=== PATIENT | male | born 1940 | race Caucasian/White ===

== ENCOUNTER 2016-12-31 08:16 | Day surgery (SDC) | payer MEDICARE, BC ==
[~2016-12-31] VITALS: Ht 177.8 cm; Wt 81.2 kg
[~2016-12-31 08:16] MED LIST: ASPI-557 PO; ATOR20TA59 PO; CARV6.252 PO; ENOX80DI SQ; FINA5TAB42 PO; HYDR25TA PO; LIDOCAINE 1% (10mg/ml) 2ml SDV INJ ONE; LISI40TA4 PO; LR 1,000 ML IV SCH; NITR0.4T SL; TAMS0.4C47 PO; WARF10TA4 PO
--- OUTSIDE RECORDS SUMMARY | 2016-12-31 08:21 | XMS REPORT | Referral Summary ---
Author Author [facility] Organization [facility] Address Unknown Phone Unavailable Care Team Providers Care Mobile Ui Designer Name Role Phone Tony Guidry Primary Care Physician [phone] Encounter VC Date(s): 05/22/16 - 05/22/16 [facility] [address] [place] [address] [place] [id number]- Discharge Diagnosis: Colitis Discharge Disposition: 01-Home or Self Care Attending Physician: Jose Luis Max MD Admitting Physician: Jose Luis Max MD Referring Physician: Ga Guidry MD Vital Signs Most recent to 1 oldest [Reference Range]: Temperature Tympanic 37 degC [36.6-38.1 degC] (05/22/16 2:52 PM) Problem List Condition Effective Dates Status Health Status Informant Alcoholism(Confirmed Resolved ) Benign essential Active hypertension (disorder)(Confirmed ) Chest Resolved pain(Confirmed)1 Coronary Active arteriosclerosis (disorder)(Confirmed ) Coronary artery Resolved disease(Confirmed) Essential Resolved hypertension (disorder)(Confirmed ) Exostosis(Confirmed) Resolved Hammertoe(Confirmed) Resolved Aortic valve Active replaced(Confirmed) Hyperlipidemia(Confi Resolved rmed) Hypertension(Confirm Resolved ed) Left inguinal Active hernia(Confirmed) Mycotic Resolved disease(Confirmed) Onychomycosis of Resolved toenail(Confirmed) Pure Active hypercholesterolemia (disorder)(Confirmed ) Pure Active hypercholesterolemia (Confirmed) Restless Active legs(Confirmed) Tinea Resolved pedis(Confirmed) 1heart cath w/3 stents(Dr. Squires)2013 Allergies, Adverse Reactions, Alerts Substance Reaction Severity Status fentaNYL Adverse Reaction Active morphine flushing Active Tape blisters Active Medications aspirin 81 mg, Chewed, Daily, 0 Refill(s) Start Date: 02/08/14 Status: Ordered Augmentin 875 mg-125 mg oral tablet 1 tabs, Oral, q12hr, HAS 5 PILLS LEFT, # 20 tabs, 0 Refill(s) Start Date: 05/09/16 Stop Date: 05/19/16 Status: Ordered Coreg 6.25 mg oral tablet See Instructions, TAKE ONE TABLET BY MOUTH TWICE A DAY WITH FOOD, # 180 tabs, 3 Refill(s), eRx: [facility] #[id number], TAKE ONE TABLET BY MOUTH TWICE A DAY WITH FOOD Start Date: 09/15/14 Status: Ordered finasteride 5 mg oral tablet mg tabs, Oral, Daily, 0 Refill(s) Start Date: 08/09/15 Status: Ordered hydrochlorothiazide 25 mg oral tablet See Instructions, TAKE ONE TABLET BY MOUTH DAILY, # 90 tabs, eRx: [facility] #[id number], TAKE ONE TABLET BY MOUTH DAILY Start Date: 04/04/16 Status: Ordered Lipitor 20 mg oral tablet See Instructions, TAKE ONE TABLET BY MOUTH EVERY EVENING, # 90 tabs, 1 Refill(s) , Pharmacy: [facility] #[id number], TAKE ONE TABLET BY MOUTH EVERY EVENING Start Date: 03/19/16 Status: Ordered lisinopril 40 mg oral tablet See Instructions, TAKE ONE TABLET BY MOUTH DAILY, # 90 tabs, 2 Refill(s), eRx: [facility] #[id number], TAKE ONE TABLET BY MOUTH DAILY Start Date: 03/12/16 Status: Ordered Nitrostat 0.4 mg sublingual tablet 1 tabs, SubLingual, q5min, as needed for chest pain, not to exceed 3 doses/15 min--if pain persists, seek medical attention, # 30 tabs, 1 Refill(s), Pharmacy : [facility] #[id number], 1 tabs SubLingual q5min,PRN:as needed for chest pain ,Instr:not to... Start Date: 01/03/15 Status: Ordered tamsulosin 0.4 mg oral capsule mg caps, Oral, Daily, 0 Refill(s) Start Date: 08/09/15 Status: Ordered warfarin 10 mg oral tablet See Instructions, TAKE ONE TABLET BY MOUTH DAILY, # 30 tabs, 0 Refill(s), Pharmacy: [facility] #[id number], TAKE ONE TABLET BY MOUTH DAILY Start Date: 03/01/16 Status: Ordered Results No data available for this section Immunizations Vaccine Date Refusal Reason tetanus/diphth/pertuss (Tdap) adult/adol 12/30/12 influenza virus vaccine, inactivated 05/09/16 influenza virus vaccine, inactivated 08/09/15 influenza virus vaccine, inactivated1 08/13/14 influenza virus vaccine, live 05/26/13 influenza virus vaccine, live 06/17/12 pneumococcal 13-valent conjugate vaccine 05/09/16 pneumococcal 23-polyvalent vaccine 12/01/04 zoster vaccine live2 02/10/14 1Result Comment: [08/13/2014] SEE SCANNED NOTE 2Early/Late Reason: Other : Procedures Procedure Date Related Diagnosis Body Site Heart - cath / stents 2012 Colonoscopy1 2005 Hernia2 2005 Procedure - porcine valve replacement 1987 Vasectomy3 1970 Appendectomy Bypass - cardia Heart valve4, 5 1had in 2005, due in 2015 [id number] 4aortic with CABG x1 vessel congentel 5Porcine valve replacement-1987 Social History Social History Type Response Smoking Status Former smoker; Type: Cigarettes1 1Quit in 1977 Assessment and Plan Extracted from: Title: Ambulatory Patient Education Author: Jose Luis Max MD Date: Family Medicine Colitis Colitis is inflammation of the colon. Colitis can be a short-term or long- standing (chronic) illness. Crohn's disease and ulcerative colitis are 2 types of colitis which are chronic. They usually require lifelong treatment. CAUSES There are many different causes of colitis, including: Viruses. Germs (bacteria). Medicine reactions. SYMPTOMS Diarrhea. Intestinal bleeding. Pain. Fever. Throwing up (vomiting). Tiredness (fatigue). Weight loss. Bowel blockage. DIAGNOSIS The diagnosis of colitis is based on examination and stool or blood tests. X- rays, CT scan, and colonoscopy may also be needed. TREATMENT Treatment may include: Fluids given through the vein (intravenously). Bowel rest (nothing to eat or drink for a period of time). Medicine for pain and diarrhea. Medicines (antibiotics) that kill germs. Cortisone medicines. Surgery. HOME CARE INSTRUCTIONS Get plenty of rest. Drink enough water and fluids to keep your urine clear or pale yellow. Eat a well-balanced diet. Call your caregiver for follow-up as recommended. SEEK IMMEDIATE MEDICAL CARE IF: You develop chills. You have an oral temperature above 102 F (38.9 C), not controlled by medicine. You have extreme weakness, fainting, or dehydration. You have repeated vomiting. You develop severe belly (abdominal) pain or are passing bloody or tarry stools. MAKE SURE YOU: Understand these instructions. Will watch your condition. Will get help right away if you are not doing well or get worse. This information is not intended to replace advice given to you by your health care provider. Make sure you discuss any questions you have with your health care provider. Document Released: 09/26/2005 Document Revised: 11/10/2012 Document Reviewed: [employer] Patient Information 2016 [employer]. No follow up information was provided. Extracted from: Title: Office Visit Note Author: Jose Luis Max MD Date: 05/22/16 Assessment/Plan 1.Colitis Ordered: Office Visit Level 4 Est 31849 Plan: Colonoscopy. Discuss with Music Journalist about Need for Lovenox/Bridging Secondary to His History for Aortic Valve Replacement. I did review the patient's chart including my consultation note from May 04, 2016. Reviewed note from PCPs soup mixer fromMay 04, 2016. Reviewed CT [place] a short segment of colitis involving the ascending colon near the hepatic flexure. There was a suggestion of a small microperforation was surrounding inflammation. Patient informs me that has been about 10 years since his last endoscopic evaluation of his colon. I informed the patient that as resulted above indications I would recommend that we proceed with a colonoscopyfor further evaluation. I informed the patient that we will need to contact his manager sign to see whether or notthey feel we shouldbridge him/place on Lovenoxwhile he is offhis Coumadinprior to his colonoscopy. Patient does have aprior surgical history foraortic valve replacement. Risk of endoscopy was discussed with the patient. Risks include but are not inclusive of bleeding and/or perforation requiring surgery. Patient understood and was scheduled.
--- OUTSIDE RECORDS SUMMARY | 2016-12-31 08:21 | XMS REPORT | Summary of Care ---
Author Author Angel Nails M.D. Organization Unknown Address [address] [place] [address] Dr [place] [address] Phone Unavailable Care Team Providers Care Corset Fitter Name Role Phone Angel Nails M.D. Unavailable Unavailable Ga Guidry Unavailable Unavailable Unavailable Unavailable Functional Status Name Dates Details Functional status health issues are not documented Status: Name Dates Details Cognitive status health issues are not documented Status: Problems Name Dates Details Abnormal PSA (790.93, R97.20) Status: Active BPH with obstruction/lower urinary tract symptoms (600.01, N40.1) Status: Active History of Urinary retention (788.20, R33.9) Status: Resolved Medications Name Dates Details Tamsulosin HCl - 0.4 MG Oral Capsule TAKE 1 TABLET BY MOUTH DAILY Quantity: 90 Cho M.Mario.Angel * Start 25-Jul-2015 Active Finasteride 5 MG Oral Tablet TAKE 1 TABLET DAILY DIRECTED. * Quantity: 90 Refills: 3 Cho M.D., Angel * Start 25-Jul-2015 Active Lipitor 20 MG Oral Tablet TAKE 1 TABLET DAILY. * Refills: 0 * Start 25-Jul-2015 Active Lisinopril 40 MG Oral Tablet TAKE 1 TABLET DAILY. * Refills: 0 * Start 25-Jul-2015 Active Nitrostat 0.4 MG Sublingual Tablet Sublingual DISSOLVE 1 TABLET UNDER THE TONGUE NEEDED FOR CHEST PAIN. * Refills: 0 * Start 25-Jul-2015 Active Warfarin Sodium 10 MG Oral Tablet TAKE 1 TABLET DAILY. * Refills: 0 Cho M.D.Angel * Start 25-Jul-2015 Active Coreg 6.25 MG Oral Tablet TAKE 1 TABLET TWICE DAILY WITH MEALS. * Refills: 0 Cho M.D., Angel * Start 25-Jul-2015 Active Aspirin 81 MG TABS TAKE 1 TABLET DAILY. * Refills: 0 Cho M.D., Angel * Start 25-Jul-2015 Active HydroCHLOROthiazide 25 MG Oral Tablet TAKE 1 TABLET DAILY DIRECTED. * Refills: 0 Cho M.D.Angel * Start 17-Aug-2016 Active Allergies and Adverse Reactions Name Dates Details fentanyl (Allergy) Status: Denied morphine (Allergy) Status: Denied Tape 1"X5YD TAPE (Allergy) Status: Denied Past Medical History Name Dates Details History of alcoholism (V11.3, F10.21) Status: Resolved History of athlete's foot (V12.09, Z86.19) Status: Resolved History of Benign essential HTN (401.1, I10) Status: Resolved History of chest pain (V13.89, Z87.898) Status: Resolved History of Coronary arteriosclerosis (414.00, I25.10) Status: Resolved History of Exostosis (726.91, M89.8X9) Status: Resolved History of Hammertoe (735.4, M20.40) Status: Resolved History of hypercholesterolemia (V12.29, Z86.39) Status: Resolved History of hyperlipidemia (V12.29, Z86.39) Status: Resolved History of Infective colitis (009.0, A09) Status: Resolved History of Left inguinal hernia (550.90, K40.90) Status: Resolved History of myocardial infarction (412, I25.2) Status: Resolved History of Onychomycosis of toenail (110.1, B35.1) Status: Resolved History of Restless leg syndrome (333.94, G25.81) Status: Resolved History of Urinary retention (788.20, R33.9) Status: Resolved Procedures Procedure Dates Details History of Heart Surgery History of Hernia Repair History of Surgery Vas Deferens Vasectomy History of Appendectomy History of Bypass Graft Using Vein History of Heart Valve Repair History of Cath Placement Of Stent 1 Procedures not documented Immunization Name Dates Details Immunizations not documented Family History Name Dates Details Family history of malignant neoplasm of prostate (V16.42, Z80.42) Comments: Family History Status: Active Name Dates Details Family history of malignant neoplasm of breast (V16.3, Z80.3) Status: Active Name Dates Details Family history of hypertension (V17.49, Z82.49) Status: Active Name Dates Details Family history of malignant neoplasm of prostate (V16.42, Z80.42) Status: Active Family history of hypertension (V17.49, Z82.49) Status: Active Name Dates Details Family history of malignant neoplasm (V16.9, Z80.9) Status: Active Social History Name Dates Details - Status: Name Dates Details Former smoker Vital Signs Date Test Result Details 17-Aug-2016 09:48 BP Systolic 124 mm[Hg] Status: Comments: Location: ; Position: BP Diastolic 69 mm[Hg] Status: Comments: Location: ; Position: Heart Rate 69 /min Status: Comments: Location: ; Weight 180 lb Status: Body Mass Index Calculated 25.83 kg/m2 Status: Body Surface Area Calculated 2 m2 Status: Results Date Description Value Details Results not documented Plan of Care Name Dates Details Planned Observations Planned Goals not documented Planned Encounters Appointment; Provider: Angel Nails M.D. On 21-Aug-2017 08:30 Instructions Name Dates Details Instructions not documented Encounters Appointment; Angel Nails M.D. Encounter Diagnosis: Problem not documented On 09:45 Appointment; Angel Nails M.D. Encounter Diagnosis: Problem not documented On 17-Aug-2015 08:45
--- OUTSIDE RECORDS SUMMARY | 2016-12-31 08:22 | XMS REPORT | Continuity of Care Document ---
Author Author [facility] Organization [facility] Address Unknown Phone Unavailable Support Name Relationship Address Phone TALYA GUIDRY MD Caregiver [address] [place] [address] [place] [address] Unavailable DOMO GONZALEZ FACS, MD Caregiver [address] [place] [address] [place] [address] Unavailable LIZZY MCNEAL Next Of Kin Unknown [phone] Insurance Providers Guarantor Thierno [place] [address] Email DENIED NO TO PT PORT Payer Medicare Policy Number [id number] Subscriber's Name Thierno Shafer Relationship 18 Self Effective Date 04 Payer [facility] Policy Number [id number] Subscriber's Name Thierno Shafer Relationship 18 Self Group Number [id number] Advance Directives Directive Response Recorded Date/Time Ordered Resuscitation Status Full Code 06/20/16 2:55pm Resuscitation Documents on File Yes 06/21/16 8:34am DPOA for Healthcare Only Yes 06/21/16 8:34am Living Will Yes 06/21/16 8:34am Problems Active Problems Medical Problem Onset Date Status Acute cholecystitis Unknown BPH (benign prostatic hyperplasia) Unknown CAD (coronary artery disease) Unknown Chronic Chronic anticoagulation Unknown Chronic Colitis Unknown Acute Dyslipidemia Unknown Chronic HTN (hypertension) Unknown Chronic Left inguinal hernia Unknown Chronic Restless leg syndrome Unknown Chronic Surgical Problem Onset Date Status History of mechanical aortic valve replacement Unknown Chronic Past Problems Medical Problem Onset Date Acute abdominal pain Unknown Hyperbilirubinemia Unknown Peritonitis Unknown Sepsis Unknown Medications Current Home Medications Medication Dose Units Route Directions Days Qty Instructions Start Date Aspirin (Aspir 81) 81 Mg Tablet. 1 Tab Oral Daily 03/13/16 Atorvastatin Calcium 20 Mg Tablet 1 Tab Oral Bedtime 03/13/16 Carvedilol 6.25 Mg Tablet 1 Tab Oral Twice A Day 03/13/16 Enoxaparin Sodium (Lovenox) 80 Mg/0.8 Ml Syringe 80 Mg Sub-Q Twice A Day 06/21/16 Finasteride 5 Mg Tablet 1 Tab Oral Daily 03/13/16 Lisinopril 40 Mg Tablet 20 Mg Oral Daily for Hypertension 30 Days 15 Tablet Take 1/2 tablet daily until blood pressure reassessed by Dr. Guidry Tamsulosin Hcl 0.4 Mg Cap.er.24h 0.4 Mg Oral Bedtime Take 1 capsule , by mouth, 1 time a day (at BEDTIME). 03/13/16 Warfarin Sodium 10 Mg Tablet 1 Tab Oral Daily 03/13/16 Past Home Medications Medication Directions Ordered Status Amlodipine Besylate 2.5 Mg Tablet, 2.5 Mg Oral Daily 03/13/16 Discontinued Lisinopril 40 Mg Tablet, 40 Mg Oral Daily 02/25/13 Discontinued Rosuvastatin Calcium (Crestor) 5 Mg Tablet, 5 Mg Oral Daily 02/25/13 Discontinued Warfarin Sodium 10 Mg Tablet, 10 Mg Oral Daily 02/25/13 Discontinued Warfarin Sodium 10 Mg Tablet, 9 Mg Oral 02/25/13 Discontinued Social History Social History Problem Response Recorded Date/Time Onset Date Status Reason for Hospitalization COLONOSCOPY 06/21/2016 11:35am Not Applicable Not Applicable Chewing Tobacco Status No 06/21/2016 8:35am Not Applicable Not Applicable Hx Substance Use No 06/21/2016 8:35am Not Applicable Not Applicable Hx Alcohol Use No 06/21/2016 8:35am Not Applicable Not Applicable Has the pt used tobacco in the last 12 months No 06/21/2016 8:35am Not Applicable Not Applicable Query Response Start Date Stop Date Smoking Status Former smoker Hospital Discharge Instructions Instructions: Care Instructions: I was in the hospital because (patient own words): COLONOSCOPY Discharge Diet: Resume normal diet as tolerated Discharge Activity: Do NOT drive today Follow Up Appointments: Follow up with Dr. Gonzalez as needed. Pending Lab / Results: Will be notified Patient Instructions: Will call with results of biopsy. Continue with INR and Lovenox as already ordered at the infusion center by Dr. Guidry. May start Warafin tonight. May continue with Lovenox with this evening dose. Expected Signs/Symptoms: None Notify Physician If: Call physician if temperature is GREATER than 101.5, severe abdominal pain or severe rectal bleeding. During Business Hours:: Call [phone] After Business Hours:: Call [phone] (hospital) Pain Management/Treatment: Call Dr. Gonzalez if increasing abdominal pain Wound/Incision Care: N/A Condition at time of discharge: Good Plan of Care Discharge Date 06/21/16 12:06pm Instructions/Education Provided [facility] Surgical Services Prescriptions See Medication Section Functional Status Query Response Date Recorded Ability to complete ADL's impeded by No change June 21, 2016 8:34am Allergies, Adverse Reactions, Alerts Allergen Type Severity Reaction Status Last Updated NKDA Allergy Unknown Active 06/21/16 Immunizations Query Response on File Recorded Date/Time Hx Influenza Vaccination Y fall 201506/21/16 8:35am Hx Pneumococcal Vaccination Y fall 201506/21/16 8:35am Hx Influenza Vaccination Y fall 201506/21/16 8:35am Vital Signs Acute Vital Signs Vital Response Date/Time Temperature (Fahrenheit) 97.7 deg F (96.8 - 99.1) 06/21/2016 11:14am Temperature (Calculated Celsius) 36.01401 degrees C (36.0 - 37.3) 06/21/2016 11:14am Temperature Source Temporal 06/21/2016 11:14am Pulse Rate (adult) 70 bpm (60 - 100) 06/21/2016 11:55am Respiratory Rate 19 breaths/min (10 - 20) 06/21/2016 11:55am O2 Sat by Pulse Oximetry 98 % (90 - 100) 06/21/2016 11:55am Oxygen Delivery Method Room Air 06/21/2016 11:55am Blood Pressure 144/77 mm Hg 06/21/2016 11:55am Blood Pressure Source Automatic Cuff 06/21/2016 11:55am Height (Feet) 5 feet 06/21/2016 8:03am Height (Inches) 10.00 inches 06/21/2016 8:03am Weight (Kilograms) 80.900 kg 06/21/2016 8:03am Body Mass Index (BMI) 25.6 06/21/2016 8:03am Results Laboratory Results Test Name Result Units Flags Reference Collection Date/Time Result Date/ Time Comments White Blood Count 10.1 T/MM3 4.5-11.0 05/06/2016 4:05am 05/06/2016 4: 45am Red Blood Count 3.81 M/MM3 L 4.50-5.90 05/06/2016 4:05/06/2016 4: 45am Hemoglobin 11.5 GM/DL L 13.5-17.5 05/06/2016 4:05/06/2016 4:45am Hematocrit 35.2 % L 41-53 05/06/2016 4:05/06/2016 4:45am Mean Corpuscular Volume 92.4 UM3 80-100 05/06/2016 4:05/06/2016 4: 45am Mean Corpuscular Hemoglobin 30.2 UUG 26-34 05/06/2016 4:2015 4:45am Mean Corpuscular Hemoglobin Concent 32.7 GM/DL 31-37 05/06/2016 4:05/06/2016 4:45am RDW Standard Deviation 46.0 FL 36.9-50.2 05/06/2016 4:05/06/2016 4 :45am Platelet Count 142 T/MM3 130-400 05/06/2016 4:05/06/2016 4:45am Mean Platelet Volume 11.5 UM3 9.4-12.4 05/06/2016 4:05/06/2016 4: 45am Neutrophils (%) (Auto) 81.1 % H 33-66 05/06/2016 4:05/06/2016 4: 45am Lymphocytes (%) (Auto) 10.3 % L 23-45 05/06/2016 4:05/06/2016 4: 45am Monocytes (%) (Auto) 6.1 % 0-9.0 05/06/2016 4:05/06/2016 4:45am Eosinophils (%) (Auto) 2.1 % 0-4 05/06/2016 4:05/06/2016 4:45am Basophils (%) (Auto) 0.2 % 0-2 05/06/2016 4:05/06/2016 4:45am Immature Granulocyte % (Auto) 0.2 % 0.0-0.5 05/06/2016 4:2015 4:45am Absolute Neutrophils (auto) 8.2 T/MM3 H 1.8-7.7 05/06/2016 4:2015 4:45am Absolute Lymphocytes (auto) 1.0 T/MM3 1-4.8 05/06/2016 4:05am 2015 4:45am Absolute Monocytes (auto) 0.6 T/MM3 0-0.8 05/06/2016 4:05am 05/06/2016 4:45am Absolute Eosinophils (auto) 0.2 T/MM3 0-0.5 05/06/2016 4:052015 4:45am Absolute Basophils (auto) 0.0 T/MM3 0-0.2 05/06/2016 4:0505/06/2016 4:45am Absolute Immature Granulocyte (auto 0.02 T/MM3 0.00-0.03 05/06/2016 4: 05/06/2016 4:45am Neutrophils % (Manual) 91.0 % H 33-66 05/05/2016 4:05/05/2016 5: 44am Band Neutrophils % 2.0 % 0-6 05/05/2016 4:05/05/2016 5:44am Lymphocytes % (Manual) 7.0 % L 23-45 05/05/2016 4:05/05/2016 5: 44am Band Neutrophils # 0.3 T/MM3 05/05/2016 4:05/05/2016 5:44am Absolute Neutrophils (Manual) 13.2 T/MM3 H 1.8-7.7 05/05/2016 4:11/2015 5:44am Lymphocytes # (Manual) 1.0 T/MM3 1-4.8 05/05/2016 4:05/05/2016 5: 44am Red Cell Morphology Comment NORMAL 05/05/2016 4:05/05/2016 5: 44am Icterus Index < 2 0-7 05/06/2016 4:05/06/2016 4:55am Chemistry Specimen Hemolysis < 15 0-25 05/06/2016 4:05/06/2016 4 :55am 0-25: Specimen Exhibited No Hemolysis. Turbidity < 20 0-20 05/06/2016 4:05am 05/06/2016 4:55am Sodium Level 143 MEQ/L D 134-144 05/06/2016 4:0505/06/2016 5:40am Potassium Level 3.9 MEQ/L 3.6-5 05/06/2016 4:05/06/2016 4:55am Chloride Level 106 MEQ/L 98-107 05/06/2016 4:05/06/2016 4:55am Carbon Dioxide Level 24 MEQ/L 22-30 05/06/2016 4:05/06/2016 4: 55am Anion Gap 13 MEQ/L 5-15 05/06/2016 4:05/06/2016 4:55am Blood Urea Nitrogen 14.0 MG/DL 9-05/06/2016 4:0505/06/2016 4: 55am Creatinine 1.1 MG/DL 0.8-1.5 05/06/2016 4:05/06/2016 4:55am BUN/Creatinine Ratio 13 RATIO 6-05/06/2016 4:05/06/2016 4:55am Glomerular Filtration Rate Calc 65 05/06/2016 4:05/06/2016 4: 55am Glucose Level 97 MG/DL 75-110 05/06/2016 4:05/06/2016 4:55am Calculated Osmolality 276 MOSM/KG 261-280 05/06/2016 4:05/06/2016 4:55am Calcium Level 8.4 MG/DL 8.4-10.2 05/06/2016 4:05/06/2016 4:55am Total Bilirubin 2.90 MG/DL H 0.20-1.30 05/06/2016 4:05/06/2016 4: 55am Unconjugated Bilirubin 2.50 MG/DL H 0.00-1.10 05/05/2016 4:2015 12:16pm Conjugated Bilirubin 0.00 MG/DL 0.00-0.30 05/05/2016 4:05/05/2016 12:16pm Alkaline Phosphatase 52 U/L 38-126 05/06/2016 4:05/06/2016 4:55am Total Protein 6.1 G/DL L 6.3-8.2 05/06/2016 4:05/06/2016 4:55am Albumin 3.2 G/DL L 3.5-5.0 05/06/2016 4:05/06/2016 4:55am Globulin 2.9 G/DL 2.4-3.6 05/06/2016 4:05am 05/06/2016 4:55am Albumin/Globulin Ratio 1.1 RATIO 1.1-2.2 05/06/2016 4:0505/06/2016 4 :55am Aspartate Amino Transf (AST/SGOT) 22 U/L 17-59 05/06/2016 4:05am 2015 4:55am Alanine Aminotransferase (ALT/SGPT) 19 U/L L 21-72 05/06/2016 4:0512/2015 4:55am Lactate Dehydrogenase 712 U/L H 313-618 05/04/2016 2:30pm 05/04/2016 3: 42pm Plasma Lactate 1.4 MMOL/L 0.6-2.2 05/04/2016 2:30pm 05/04/2016 3:10pm Procalcitonin 0.17 NG/ML 05/04/2016 2:30pm 05/04/2016 3:31pm PCT </= 0.5 ng/mL - sepsis not likely; PCT >0.5 and </=2 ng/mL - sepsis possible; PCT >2 ng/mL - sepsis likely; PCT >/=10 ng/mL - systemic inflammatory response - sepsis or septic shock highly indicated. Iron Level 25 UG/DL L 49-181 05/06/2016 4:05am 05/07/2016 3:06pm Total Iron Binding Capacity 299 UG/DL 261-497 05/06/2016 4:05am 2015 3:15pm Percent Iron Saturation 8 % L 13-59 05/06/2016 4:05am 05/07/2016 3:15pm Urine Collection Type VOIDED-NOT CC-MIDSTR 05/06/2016 2:022015 2:28am Urine Color YELLOW YELLOW 05/06/2016 2:0205/06/2016 2:28am Urine Turbidity CLEAR CLEAR 05/06/2016 2:0205/06/2016 2:28am Urine Specific [place] <=1.005 L 1.015-1.025 05/06/2016 2:02am 2015 2:28am Urine pH 6.0 5.0-8.0 05/06/2016 2:02am 05/06/2016 2:28am Urine Leukocyte Esterase NEGATIVE NEGATIVE 05/06/2016 2:02am 2015 2:28am Urine Nitrite NEGATIVE NEGATIVE 05/06/2016 2:02am 05/06/2016 2:28am Urine Protein NEGATIVE NEGATIVE 05/06/2016 2:02am 05/06/2016 2:28am Urine Glucose (UA) NEGATIVE NEGATIVE 05/06/2016 2:02am 05/06/2016 2: 28am Urine Ketones NEGATIVE NEGATIVE 05/06/2016 2:02am 05/06/2016 2:28am Urine Urobilinogen 1.0 EU/DL NORMAL 05/06/2016 2:02am 05/06/2016 2: 28am Urine Bilirubin NEGATIVE NEGATIVE 05/06/2016 2:02am 05/06/2016 2: 28am Urine Blood 1+ A NEGATIVE 05/06/2016 2:02am 05/06/2016 2:28am Urine WBC NONE SEEN /HPF 0-5 05/06/2016 2:02am 05/06/2016 2:52am Urine RBC 1-3 /HPF 0-3 05/06/2016 2:02am 05/06/2016 2:52am Urine Bacteria NONE SEEN NEGATIVE 05/06/2016 2:02am 05/06/2016 2: 52am Urine Culture Indicated CULT NOT INDICATED 05/06/2016 2:02am 2015 2:52am Prothromb Time International Ratio 1.03 0.99-1.21 06/21/2016 8:11am 06/21/2016 8:29am THERAPUTIC RANGE=2.00-3.00 FOR ANTI-THROMBOSIS THERAPUTIC RANGE=2.50-3.50 FOR IMPLANTED VALVE Microbiology Results Procedure Source Organism/Result Collection Date/Time Result Date/Time Result Status Blood Culture Peripheral/Iv Start NO GROWTH AFTER 5 DAYS 05/04/2016 2:32pm 05/09/2016 2:56pm Final Procedures Procedure Status Date Provider(s) COMPREHEN METABOLIC PANEL Completed 05/04/16 Colonoscopy with polypectomy and biopsy Completed 06/21/16 DOMO GONZALEZ MD, FACS, ANNMARIE Encounters Encounter Location Arrival/Admit Date Discharge/Depart Date Attending Provider Registered Surgical [facility] 06/21/16 7:50am DOMO GONZALEZ FACS, MD Registered [facility] 06/20/16 8:00am TALYA GUIDRY MD Discharged Inpatient [facility] 05/04/16 12:00pm 05/06/16 3:55pm JONATAN BERGER MD Registered [facility] 05/04/16 10:13am BARRINGTON ROBLERO APRN
--- OUTSIDE RECORDS SUMMARY | 2016-12-31 08:23 | XMS REPORT | Continuity of Care Document ---
Author Author [facility] Organization [facility] Address Unknown Phone Unavailable Allergies Active Description Code Type Severity Reaction Onset Reported/Identified Relationship to Patient Clinical Status Yes No Known Allergies Drug Allergy N/A N/A 02/26/2013 Yes No Known Drug Allergies Drug Allergy N/A N/A 02/26/2013 Yes fentanyl Drug Allergy N/A Adverse Reaction 03/02/2013 Yes morphine Drug Allergy N/A flushing 03/02/2013 Yes Tape Miscellaneous Allergy N/A blisters 03/02/2013 Yes No Known Food Allergies Food Allergy N/A N/A 03/17/2013 Yes fentaNYL NKMA N/A Adverse Reaction 01/01/2014 Yes morphine NKMA N/A flushing 01/01/2014 Yes Tape 85922 N/A blisters 01/01/2014 Medications Problems Date Dx Coded Attending Type Code Diagnosis Diagnosed By 02/27/2013 Jose VELASQUEZ, Juliano Malave Final 401.9 HYPERTENSION NOS 02/27/2013 Juliano Garcia MD Final 410.71 SUBEND INFARCT-INITIAL 02/27/2013 Juliano Garcia MD Final 414.01 COR -[place] VESSEL 02/27/2013 Juliano Garcia MD Final 414.02 COR -AUTOLOG GRAFT 02/27/2013 Juliano Garcia MD Final 427.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 02/27/2013 Juliano Garcia MD Admitting 786.50 CHEST PAIN NOS 02/27/2013 Juliano Garcia MD Final V43.3 HEART VALVE REPL NEC 03/17/2013 Israel Squires MD Final 272.4 HYPERLIPIDEMIA NEC NOS 03/17/2013 Israel Squires MD Admitting 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 03/17/2013 Israel Squires MD Final 414.01 COR -[place] VESSEL 03/17/2013 Israel Squires MD Final 414.02 COR -AUTOLOG GRAFT 03/17/2013 Israel Squires MD Final V43.3 HEART VALVE REPL NEC 03/17/2013 Israel Squires MD Admitting 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 Procedures Code Description Performed By Performed On 00.40 PX ON 1 VESSEL Tavia VELASQUEZ, [place] 03/01/2013 00.46 INSERT 2 VASC STENTS Tavia VELASQUEZ, [place] 03/01/2013 00.66 PTCA/ATHERECTOMY Tavia VELASQUEZ, [place] 03/01/2013 36.07 DRUG-ELUTING COR STENT Tavia VELASQUEZ, [place] 03/01/2013 88.56 COR ARTERIOGRAM-2 CATH Tavia VELASQUEZ, [place] 03/01/2013 Results Test Result Range Basic Metabolic Panel (BMP) - 03/09/16 10:07 Anion Gap 4 NA 3-20 BUN 26 mg/dL 8-26 Calcium 8.6 mg/dL 8.9-10.5 Chloride 108 mEq/L 99-111 CO2 25 mEq/L 23-31 Creatinine 1.09 mg/dL 0.72-1.25 Glucose 109 mg/dL 70-99 Potassium 4.8 mEq/L 3.5-5.2 Sodium 137 mEq/L 135-144 eGFR - 03/09/16 10:07 eGFR >60 mL/min >60 Encounters ACCT No. Visit Date/Time Discharge Status Pt. Type Provider Facility Loc./Unit Complaint [id number] 03/17/2013 10:28:00 2012 14:58:00 DIS Outpatient Israel Squires MD [facility] on [address] J5[facility] [id number] 02/26/2013 20:48:00 2012 13:55:00 DIS Inpatient Garcia Juliano VELASQUEZ [facility] on [address]
--- OUTSIDE RECORDS SUMMARY | 2016-12-31 08:23 | XMS REPORT | Continuity of Care Document ---
Author Author [facility] Organization [facility] Address Unknown Phone Unavailable Support Name Relationship Address Phone TALYA GUIDRY MD Caregiver [address] [place] [address] [place] [address] Unavailable DOMO GONZALEZ FACS, MD Caregiver [address] [place] [address] [place] [address] Unavailable LIZZY MCNEAL Next Of Kin Unknown [phone] Insurance Providers Guarantor Thierno [place] [address] Email DENIED NO TO PT PORT Payer Medicare Policy Number [id number] Subscriber's Name Thierno Shafer Relationship 18 Self Effective Date 04 Payer [facility] Policy Number [id number] Subscriber's Name Thierno Shafer Relationship 18 Self Group Number [id number] Advance Directives Directive Response Recorded Date/Time Ordered [...] severe rectal bleeding. During Business Hours:: Call [phone] After Business Hours:: Call [phone] (hospital) Pain Management/Treatment: Call Dr. Gonzalez if increasing abdominal pain Wound/Incision Care: N/A Condition at time of discharge: Good Plan of Care Discharge Date 06/21/16 12:06pm Instructions/Education Provided [facility] Surgical Services Prescriptions See Medication Section Functional [...] Vital Signs Vital Response Date/Time Temperature (Fahrenheit) 97.0 deg F (96.8 - 99.1) 06/28/2016 8:25am Temperature (Calculated Celsius) 36.81808 degrees C (36.0 - 37.3) 06/28/2016 8:25am Temperature Source Temporal 06/21/2016 11:14am Pulse Rate (adult) 61 bpm (60 - 100) 06/28/2016 8:25am Respiratory Rate 16 breaths/min (10 - 20) 06/28/2016 8:25am O2 Sat by Pulse Oximetry 98 % (90 - 100) 06/28/2016 8:25am Oxygen Delivery Method Room Air 06/28/2016 8:25am Blood Pressure 129/69 mm Hg 06/28/2016 8:25am Blood Pressure Source Automatic Cuff 06/28/2016 8:25am Height (Feet) 5 feet 06/21/2016 8:03am Height [...] CLEAR CLEAR 05/06/2016 2:0205/06/2016 2:28am Urine Specific [place] <=1.005 L 1.015-1.025 05/06/2016 2:02am 2015 2:28am [...] 2:02am 2015 2:52am Prothromb Time International Ratio 2.78 H 0.99-1.21 06/28/2016 8:15am 06/28/2016 8:38am THERAPUTIC RANGE=2.00-3.00 FOR ANTI-THROMBOSIS THERAPUTIC RANGE=2.50-3.50 FOR IMPLANTED VALVE Microbiology Results Procedure Source Organism/Result Collection Date/Time Result Date/Time Result Status Blood Culture Peripheral/Iv Start NO GROWTH AFTER 5 DAYS 05/04/2016 2:32pm 05/09/2016 2:56pm Final Procedures Procedure Status Date Provider(s) COMPREHEN METABOLIC PANEL Completed 05/04/16 Colonoscopy with polypectomy and biopsy Completed 06/21/16 DOMO GONZALEZ MD, FACS, CWS Encounters Encounter Location Arrival/Admit Date Discharge/Depart Date Attending Provider Discharged [facility] 06/28/16 8:00am 06/28/16 8:45am TALYA GUIDRY MD Departed [facility] 06/21/16 7:50am 06/21/16 12 :06pm DOMO GONZALEZ FACS, MD Discharged Inpatient [facility] 05/04/16 12:00pm 05/06/16 3:55pm JONATAN BERGER MD Registered Clinic [facility] 05/04/16 10:13am BARRINGTON ROBLERO APRN
--- OUTSIDE RECORDS SUMMARY | 2016-12-31 08:24 | XMS REPORT ---
Author Author [facility] - Organization Unknown Address Unknown Phone Unavailable Allergies, Adverse Reactions, Alerts * fentanyl causes Adverse Reaction. * morphine causes flushing. * Tape (as Environmental allergen) causes blisters. * No Latex Allergy. * No IV Contrast Allergy. * No Known Food Allergies. Problems * Chest Pain* Status:Active. * Coronary Arteriosclerosis* Status:Active. * Knowledge of Diagnostic Testing Low Level* Status:Inactive. * Skin Integrity Impairment* Status:Inactive. Procedures No relevant procedures performed. Medication It is the responsibility of the patient or patient wholesale representative to confirm the list of medications with either the patient's personal care provider or the patient's follow-up care provider to ensure the patient has an appropriate list of medications to take at home. Discharge medications* aspirin 81 mg Tablet, Chewable, Ordered By: AGUSTIN RESER Directions: 1 tablet oral Daily at 8 AM _ * clopidogrel (Plavix) 75 mg Tablet, Ordered By: AGUSTIN RESER Directions: 1 tablet oral daily * enoxaparin (Lovenox) 80 mg/0.8 mL Syringe, Ordered By: AGUSTIN RESER Directions: 80 mg subcutaneous every twelve hours Additional Instructions: until INR > 2.5 * famotidine (Pepcid) 20 mg Tablet, Ordered By: AGUSTIN RESER Directions: 1 tablet oral twice a day Additional Instructions: for stomach protection * lisinopril 40 mg Tablet, Ordered By: AGUSTIN RESER Directions: 1 tablet oral daily * nitroglycerin (Nitrostat) 0.4 mg Tablet, Sublingual, Ordered By: AGUSTIN RESER Directions: 1 tablet sublingual PRN _ CHEST PAIN Additional Instructions: Q5MIN X3 PRN CHEST PAIN CALL PHYSICIAN IF NO RELIEF * rosuvastatin (Crestor) 5 mg Tablet, Ordered By: AGUSTIN RESER Directions: 1 tablet oral daily at bedtime * isosorbide mononitrate (Imdur) 30 mg Tablet Extended Release 24 hr, Ordered By : AGUSTIN GUERRA Directions: 1 tablet oral daily * warfarin 10 mg Tablet, Ordered By: AGUSTIN GUERRA Directions: 1 tablet oral every Saturday, Saturday, Saturday every evening * warfarin 9 mg Tablet, Ordered By: AGUSTIN GUERRA Directions: 1 tablet oral daily every evening Additional Instructions: on Saturday, , Saturday, Saturday * Take Lovenox as directed by Dr Squires before resuming Coumadin Stopped medications* None Results LAB--BEDSIDE TESTING from 03/17/2013 2:08 PMActivated Clotting Time NPT 214 secs H (100-146 secs) LAB--BEDSIDE TESTING from 03/17/2013 2:41 PMActivated Clotting Time NPT 209 secs H (100-146 secs) LAB--CHEMISTRY from 03/17/2013 10:56 AMAnion Gap 7 (3-20 ) BUN 16 mg/dL (4-20 mg/dL) Calcium 8.7 mg/dL (8.6-10.0 mg/dL) Chloride 106 mEq/L (99-109 mEq/L) CO2 23 mEq/L (22-32 mEq/L) Creatinine 1.01 mg/dL (0.64-1.27 mg/dL) eGFR >60 (>60- ) Glucose 108 mg/dL H (70-100 mg/dL) Potassium 4.2 mEq/L (3.6-5.1 mEq/L) Sodium 136 mEq/L (136-144 mEq/L) LAB--CHEMISTRY from 03/17/2013 4:01 PMTroponin <0.06 ng/mL (-<0.06 ng/mL) LAB--COAG STUDIES from 03/17/2013 10:56 AMINR 1.0 (0.9-1.2 ) LAB--COAG STUDIES from 03/17/2013 2:10 [id number] Reaction Units 186.0 Units LAB--COAG STUDIES from 03/17/2013 6:25 PMPTT 58.1 sec H (25.0-35.0 sec) LAB--COAG STUDIES from 03/17/2013 8:12 PMPTT 35.2 sec H (25.0-35.0 sec) LAB--COAG STUDIES from 03/18/2013 3:43 AMINR 1.1 (0.9-1.2 ) LAB--HEMATOLOGY from 03/17/2013 10:57 AMAbsolute Basophils 0.03 THOUS (0.00-0.20 THOUS) Absolute Eosinophils 0.18 THOUS (0.00-0.50 THOUS) Absolute Lymphocytes 1.07 THOUS (0.80-3.30 THOUS) Absolute Monocytes 0.66 THOUS (0.30-1.00 THOUS) Absolute Neutrophils 5.48 THOUS (1.90-7.00 THOUS) HCT 40.2 % L (42.0-52.0 %) HGB 13.6 g/dl L (14.0-18.0 g/dl) MCH 30.8 pg (27.0-32.0 pg) MCHC 33.8 g/dL (32.0-36.0 g/dL) MCV 91.2 fL (82.0-99.0 fL) MPV 10.7 fL (9.4-12.3 fL) Platelet Count 243 K/uL (150-400 K/uL) RBC 4.41 M/uL L (4.60-6.20 M/uL) RDW 13.2 % (11.5-14.5 %) WBC 7.4 K/uL (4.8-10.8 K/uL) Basophils 0 % (0-2 %) Eosinophils 2 % (0-4 %) Immature Granulocytes 0.1 % (0.0-1.0 %) Lymphocytes 14 % L (20-46 %) Monocytes 9 % (4-11 %) Neutrophils 74 % (51-75 %)
--- OUTSIDE RECORDS SUMMARY | 2016-12-31 08:24 | XMS REPORT ---
Author Author [place], [facility] - Organization Unknown Address Unknown Phone Unavailable Allergies, Adverse Reactions, Alerts * fentanyl causes Adverse Reaction. * morphine causes flushing. * Tape (as Environmental allergen) causes blisters. * No Latex Allergy. * No IV Contrast Allergy. * No Known Food Allergies. Problems * Chest Pain* Status:Active. * Knowledge of Diagnostic Testing Low Level* Status:Active. * Skin Integrity Impairment* Status:Active. Procedures No relevant procedures performed. Medication It is the responsibility of the patient or patient representative personal service to confirm the list of medications with either the patient's personal care provider or the patient's follow-up care provider to ensure the patient has an appropriate list of medications to take at home. Discharge medications* lisinopril 40 mg Tablet, Ordered By: Ree Sumner Directions: 1 tablet oral daily * warfarin 10 mg Tablet, Ordered By: Ree Sumner Directions: 1 tablet oral every Saturday, Saturday, Saturday every evening * warfarin 10 mg Tablet, Ordered By: Ree Sumner Directions: 0.5 tablet oral every Saturday, , Saturday, Saturday every evening Additional Instructions: 5+4=9mg * warfarin 2 mg Tablet, Ordered By: Ree Sumner Directions: 2 tablet oral every Saturday, , Saturday, Saturday every evening Additional Instructions: 5+4=9mg * aspirin 81 mg Tablet, Chewable, Ordered By: Ree Sumner Directions: 1 tablet oral Daily at 8 AM _ * rosuvastatin (Crestor) 5 mg Tablet, Ordered By: Ree Sumner Directions: 1 tablet oral daily at bedtime * clopidogrel (Plavix) 75 mg Tablet, Ordered By: Ree Sumner Directions: 1 tablet oral daily * nitroglycerin (Nitrostat) 0.4 mg Tablet, Sublingual, Ordered By: Ree Sumner Directions: 1 tablet sublingual PRN _ CHEST PAIN Additional Instructions: Q5MIN X3 PRN CHEST PAIN CALL PHYSICIAN IF NO RELIEF * enoxaparin (Lovenox) 80 mg/0.8 mL Syringe, Ordered By: Ree Sumner Directions: 80 mg subcutaneous every twelve hours Additional Instructions: until INR > 2.5 * famotidine (Pepcid) 20 mg Tablet, Ordered By: Ree Sumner Directions: 1 tablet oral twice a day Additional Instructions: for stomach protection Stopped medications* None Results LAB--BEDSIDE TESTING from 03/01/2013 5:19 AMGlucose NPT 106 mg/dL H (70-100 mg/ dL) LAB--BEDSIDE TESTING from 03/01/2013 11:11 AMActivated Clotting Time NPT 154 secs H (100-146 secs) LAB--BEDSIDE TESTING from 03/01/2013 12:20 PMActivated Clotting Time NPT 199 secs H (100-146 secs) LAB--CHEMISTRY from 02/27/2013 2:08 PMTroponin 0.35 ng/mL HH (-<0.06 ng/mL) LAB--CHEMISTRY from 03/01/2013 1:21 PMTroponin 0.11 ng/mL HH (-<0.06 ng/mL) LAB--CHEMISTRY from 03/02/2013 4:04 AMAnion Gap 6 (3-20 ) BUN 25 mg/dL H (4-20 mg/dL) Calcium 8.5 mg/dL L (8.6-10.0 mg/dL) Chloride 105 mEq/L (99-109 mEq/L) CO2 24 mEq/L (22-32 mEq/L) Creatinine 1.52 mg/dL H (0.64-1.27 mg/dL) eGFR 45 A (>60- ) Glucose 115 mg/dL H (70-100 mg/dL) Potassium 4.3 mEq/L (3.6-5.1 mEq/L) Sodium 135 mEq/L L (136-144 mEq/L) LAB--COAG STUDIES from 02/27/2013 2:08 PMINR 3.1 H (0.9-1.2 ) LAB--COAG STUDIES from 02/28/2013 7:43 AMINR 1.8 H (0.9-1.2 ) LAB--COAG STUDIES from 02/28/2013 4:07 PMPTT 44.3 sec H (25.0-35.0 sec) LAB--COAG STUDIES from 03/01/2013 12:04 AMPTT 100.1 sec H (25.0-35.0 sec) LAB--COAG STUDIES from 03/01/2013 5:55 AMINR 1.4 H (0.9-1.2 ) PTT 81.2 sec H (25.0-35.0 sec) LAB--COAG STUDIES from 03/01/2013 4:16 PMPTT 66.0 sec H (25.0-35.0 sec) LAB--COAG STUDIES from 03/01/2013 5:10 PMPTT 44.8 sec H (25.0-35.0 sec) LAB--COAG STUDIES from 03/02/2013 4:04 AMINR 1.2 (0.9-1.2 ) LAB--HEMATOLOGY from 03/02/2013 4:04 AMHCT 37.9 % L (42.0-52.0 %) HGB 12.5 g/dl L (14.0-18.0 g/dl) MCH 30.3 pg (27.0-32.0 pg) MCHC 33.0 g/dL (32.0-36.0 g/dL) MCV 92.0 fL (82.0-99.0 fL) MPV 11.1 fL (9.4-12.3 fL) Platelet Count 195 K/uL (150-400 K/uL) RBC 4.12 M/uL L (4.60-6.20 M/uL) RDW 13.7 % (11.5-14.5 %) WBC 8.4 K/uL (4.8-10.8 K/uL)
--- OUTSIDE RECORDS SUMMARY | 2016-12-31 08:24 | XMS REPORT | Referral Summary ---
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 Name Role Phone Tony Guidry Primary Care Physician [phone] Encounter [facility] [id number] Date(s): 10/12/16 - 10/12/16 [facility], [address] [place] [address]- Discharge Diagnosis: Pure hypercholesterolemia Discharge Diagnosis: Aortic valve replaced Discharge Diagnosis: Benign essential hypertension Discharge Diagnosis: Coronary arteriosclerosis Discharge Diagnosis: Actinic keratosis Discharge Diagnosis: Warfarin anticoagulation Discharge Disposition: 01-Home or Self Care Attending Physician: Ga Guidry MD Admitting Physician: Ga Guidry MD Vital Signs Most recent to 1 oldest [Reference Range]: Peripheral Pulse 89 bpm Rate [60-100 bpm] (10/12/16 8:37 AM) Blood Pressure 130/68 mmHg [90-140/60-90 mmHg] (10/12/16 8:37 AM) Problem List Condition Effective Dates Status Health [...] 0 Refill(s) Start Date: 02/08/14 Status: Ordered atorvastatin 20 mg oral tablet See Instructions, TAKE ONE TABLET BY MOUTH EVERY EVENING, # 90 tabs, eRx: [facility] #[id number] Start Date: 09/24/16 Status: Ordered Coreg 6.25 mg oral tablet See Instructions, TAKE ONE TABLET BY MOUTH TWICE A DAY WITH FOOD, # 180 tabs, 3 Refill(s), eRx: [facility] #[id number], TAKE ONE TABLET BY MOUTH TWICE A DAY WITH FOOD Start Date: 09/15/14 Status: Ordered finasteride 5 mg oral tablet mg tabs, Oral, Daily, 0 Refill(s) Start Date: 08/09/15 Status: Ordered hydroCHLOROthiazide 25 mg oral tablet See Instructions, TAKE ONE TABLET BY MOUTH DAILY, # 90 tabs, eRx: [facility] #[id number], TAKE ONE TABLET BY MOUTH DAILY Start Date: 07/16/16 Status: Ordered lisinopril 40 mg oral tablet See Instructions, TAKE ONE TABLET BY MOUTH DAILY, # 90 tabs, 2 Refill(s), eRx: [facility] #[id number], TAKE ONE TABLET BY MOUTH DAILY Start Date: 03/12/16 Status: Ordered Nitrostat 0.4 mg sublingual tablet 0.4 mg 1 tabs, SubLingual, q5min, as needed for chest pain, not to exceed 3 doses/15 min--if pain persists, seek medical attention, # 30 tabs, 1 Refill(s), Pharmacy: [facility] #[id number], 1 tabs SubLingual q5min,PRN:as needed for chest pain,Instr:... Start Date: 09/21/16 Status: Ordered tamsulosin 0.4 mg oral capsule mg caps, Oral, Daily, 0 Refill(s) Start Date: 08/09/15 Status: Ordered warfarin 2 mg oral tablet See Instructions, TAKE 9MG ON SATURDAY, SATURDAY, , AND SATURDAY (2 TABLET 4 DAYS EVERY WEEK WITH 1/2 OF A 10MG TABLET), # 60 tabs, 4 Refill(s), eRx: [facility] #[id number] Start Date: 09/13/16 Status: Ordered Results Coagulation Most recent to 1 oldest [Reference Range]: PT Venous (10/12/16 9:35 AM) INR [0.8-1.2] 2.2 1 *HI* (10/12/16 9:35 AM) 1Result Comment: Normal (no anticoagulant): 0.8 - 1.2 Units Routine Therapeutic Range: 2.0 - 3.0 Units High Risk Therapeutic Range: 2.5 - 3.5 Units Chemistry Most recent to 1 oldest [Reference Range]: Sodium Lvl [135-144 140 mEq/L mEq/L] (10/12/16 9:35 AM) Potassium Lvl 4.6 mEq/L [3.5-5.2 mEq/L] (10/12/16 9:35 AM) Chloride [99-111 108 mEq/L mEq/L] (10/12/16:35 AM) CO2 [23-31 mEq/L] 25 mEq/L (10/12/16 9:35 AM) AGAP [3-20] 7 (10/12/16:35 AM) BUN [8-26 mg/dL] 20 mg/dL (10/12/16 9:35 AM) Glucose Lvl [70-99 106 mg/dL mg/dL] *HI* (10/12/16 9:35 AM) Creatinine Lvl 1.08 mg/dL [0.72-1.25 mg/dL] (10/12/16 9:35 AM) eGFR [>60 mL/min] >60 mL/min 1 (10/12/16 9:35 AM) Calcium Lvl 8.7 mg/dL 2 [8.4-10.2 mg/dL] (10/12/16 9:35 AM) Chol [0-199 mg/dL] 131 mg/dL (10/12/16 9:35 AM) Trig [0-149 mg/dL] 90 mg/dL (10/12/16 9:35 AM) HDL [40-84 mg/dL] 37 mg/dL *LOW* (10/12/16 9:35 AM) LDL [0-130 mg/dL] 76 mg/dL (10/12/16 9:35 AM) VLDL Cholesterol 18 mg/dL [0-28 mg/dL] (10/12/16 9:35 AM) Cardiac Risk 3.5 [0.0-5.7] (10/12/16 9:35 AM) 1Result Comment: Multiply eGFR results by 1.21 for race. 2Result Comment: Please note reference range change effective 10/05/2016. Immunizations Given and Recorded Vaccine Date Status Refusal Reason tetanus/diphth/pertuss (Tdap) adult/adol 12/30/12 Recorded influenza virus vaccine, inactivated 05/09/16 Given influenza virus vaccine, inactivated 08/09/15 Given influenza virus vaccine, inactivated1 08/13/14 Recorded influenza virus vaccine, live 05/26/13 Given influenza virus vaccine, live 06/17/12 Given pneumococcal 13-valent conjugate vaccine 05/09/16 Given pneumococcal 23-polyvalent vaccine 12/01/04 Recorded zoster vaccine live2 02/10/14 Given 1Result Comment: [08/13/2014] SEE SCANNED NOTE 2Early/Late Reason: Other : Procedures Procedure Date Related Diagnosis Body Site Destruction (eg, laser surgery, 10/12/16 electrosurgery, cryosurgery, chemosurgery, surgical curettement), premalignant lesions (eg, actinic keratoses); first lesion Destruction (eg, laser surgery, 10/12/16 electrosurgery, cryosurgery, chemosurgery, surgical curettement), premalignant lesions (eg, actinic keratoses); second through 14 lesions, each (List separately in addition to code for first lesion) Colonoscopy and biopsy of colon1 06/21/16 Heart - cath w/3 stents 2012 Colonoscopy2 2005 Hernia3 2005 Procedure - porcine valve replacement 1987 Vasectomy4 1969 Appendectomy Bypass - cardia Heart valve5, 6 1No signs of cancer. Lesion near the hepatic flexure, pathology indicates acute mucosal ulceration with marked acute and chronic inflammation and granulation tissue. Ulcer may have contributed to small microperforation. Avoid NSAIDs. Return to clinic in 6 months to discuss possible repeat colonoscopy. Sooner if abdominal pain returns. 2had in 2005, due in 2016 [id number] 5aortic with CABG x1 vessel congentel 6Porcine valve replacement-1987 Social History Social History Type Response Smoking Status Former smoker; Type: Cigarettes1 1Quit in 1977 Assessment and Plan Extracted from: Title: 6 Month CDM Author: Ga Guidry MD Date: 10/12/16 Impression and Plan Diagnosis Actinic keratosis (STE08-RI L57.0, Discharge, Medical). Aortic valve replaced (USL14-KH Z95.2, Discharge, Medical). Benign essential hypertension (TBK81-QF I10, Discharge, Medical). Coronary arteriosclerosis (YGA32-BS I25.10, Discharge, Medical). Pure hypercholesterolemia (KMP59-ZS E78.00, Discharge, Medical). Warfarin anticoagulation (QMX35-AQ Z79.01, Discharge, Medical). Orders Orders (Selected) Outpatient Orders Future (On Hold) BMP: Fasting Lipid Profile: PT/INR: .
[2016-12-31 08:39] VITALS: BP 173/79; PULSE 66; RESP 14; TEMP 98; O2SAT 97; Ht 177.8 cm; Wt 81.2 kg
--- NOTE | 2016-12-31 09:40 | ANESPREOP ---
Anesthesia Record Date and Time DATE: 12/31/16 TIME: 09:39 Pre-Op Diagnosis ulceration of colon Proposed Surgical Procedure COLONOSCOPY NPO since: 0700 Allergies: Coded Allergies: NKDA (Verified Allergy, Unknown, 12/31/16) Ht/Wt/BMI Height: 5 ' 10.00 " Weight: 81.200 kg BMI: 25.7 kg/m2 Vital Signs Date Time Temp Pulse Resp B/P Pulse Ox O2 Delivery O2 Flow Rate FiO2 12/31/16 08:39 98.0 66 14 173/79 97 Room Air Medications Inpatient Medications Current Medications Medications (Trade) Dose Ordered Sig/Bishnu Start Time Stop Time Status Last Admin Dose Admin Lactated Ringer's (Lactated Ringers) 1,000 ml @ 30 mls/hr Q24H 12/31/16 07:00 12/31/16 08:55 30 MLS/HR Aspirin (Aspir 81) 81 Mg Tablet.dr, 1 TAB PO DAILY, (Reported) Last Taken: on 12/25/16 0800 Atorvastatin Calcium (Atorvastatin Calcium) 20 Mg Tablet, 1 TAB PO HS, (Reported) Last Taken: on 12/30/16 1700 Carvedilol (Carvedilol) 6.25 Mg Tablet, 1 TAB PO BID, (Reported) Last Taken: on 12/31/16 0600 Enoxaparin Sodium (Lovenox) 80 Mg/0.8 Ml Syringe , 80 MG SQ BID, (Reported) Last Taken: on 12/30/16 1100 Finasteride (Finasteride) 5 Mg Tablet, 1 TAB PO DAILY, (Reported) Last Taken: on 12/30/16 0800 Hydrochlorothiazide (Hydrochlorothiazide) 25 Mg Tablet, 1 TAB PO WB, (Reported) Last Taken: on 12/30/16 0800 Lisinopril (Lisinopril) 40 Mg Tablet, 20 MG PO DAILY Take 1/2 tablet daily until blood pressure reassessed by Dr. Guidry Last Taken: on 12/30/16 1700 Nitroglycerin (Nitrostat) 0.4 Mg Tablet, 1 TAB SL ASD, (Reported) Last Taken: on Unknown Date & Time Tamsulosin HCl (Tamsulosin HCl) 0.4 Mg Cap.er.24h, 0.4 MG PO HS, (Reported) Take 1 capsule, by mouth, 1 time a day (at BEDTIME). Last Taken: on 12/30/16 1700 Warfarin Sodium (Warfarin Sodium) 10 Mg Tablet , 1 TAB PO DAILY, (Reported) Last Taken: on 12/26/16 2100 Currently on Beta Jordi: Yes Beta Jordi Last Taken: CARVEDILOL AT 0700 12/31/16 Medical/Surgical History Anesthesia PMH: Reports: *Angina (HX. NONE IN PAST 6 MTHS), *Hypertension, *SC ( STENTS X3 (SEES AMIRANI)), Arthritis (GENERALIZED), Clotting Problems (TAKES WARFARIN), Denies: *Diabetes, Anesthesia Reactions (NO AIRWAY ISSUES), Asthma, Blood Transfusion Reac, CHF, COPD, CVA/Stroke/TIA, Cancer, Glaucoma, Malignant Hyperthermia, Pacemaker, Reflux, Renal Disease, Seizures, Sleep Apnea, Thyroid Disease Smoking Status: Former smoker # of Packs per Day: 1.5 # of Years: 20 Use Chewing Tobacco?: No Second Hand Exposure: No Substance Use Type: does not use Alcohol Intake: none Past Surgical History Orthopedic Surgeries: No Abdominal Surgeries: Yes - 1949 APPENDECTOMY; TWO HERNIA REPAIRS Genitourinary Surgeries: No Cardiac Surgeries: Yes - STENTS IN ; 1987 AORTIC VALVE REPLACEMENT, BYPASS Endocrine Surgeries: No Reproductive Surgeries: Yes - VASECTOMY Neurological Surgeries: No Ear Surgeries: No Nose Surgeries: No Throat Surgeries: No Other Surgeries: Yes - COLONOSCOPY Anesthesia Adverse Reactions: FOUND none Pertinent Findings EKG Rhythm: Sinus Rhythm Physical Exam Respiratory: Lungs clear Cardiovascular: FOUND Regular rate, rhythm, FOUND No murmur Airway Assessment Mallampati Score: II TMD: 3 Fingerbreadths Teeth: Chipped Teeth/Crowns Overall Assessment: No Airway Concerns ASA: 3 Plan Anesthesia Plan: TIVA Discussion Discussed risks/options/alternatives of anesthesia and questions answered. Patient consents. Nursing pain assessment noted. Present: Family Member Attestation Statement Prior to the delivery of any anesthetic medication, I examined the patient, developed the plan, obtained the patient's consent and discussed the risk and benefits of the procedure with the patient/guardian. KRISTIN KOVACS CRNA December 31, 2016 09:40
[2016-12-31] MEDS ORDERED: EPHEDRINE SULFATE 50mg/ml INJECTION ONE (10:05)
[2016-12-31] MEDS ORDERED: SALINE FLUSH 10ml SYRINGE ONE (10:05)
[2016-12-31 10:25] VITALS: BP 88/55; PULSE 70; RESP 16; TEMP 97.4; O2SAT 96
[2016-12-31 10:40] VITALS: BP 122/65; PULSE 72; RESP 16; TEMP 97.7; O2SAT 96
[2016-12-31 10:55] VITALS: BP 132/68; PULSE 71; RESP 16; O2SAT 96
--- NOTE | 2016-12-31 11:01 | ANESPO ---
Post-Op Note Date 12/31/16 Time: 11:02 Status Pt Participated in Evaluation: Pt participated in person Vital Signs Date Time Temp Pulse Resp B/P Pulse Ox O2 Delivery O2 Flow Rate FiO2 12/31/16 10:40 97.7 72 16 122/65 96 Room Air 12/31/16 10:25 5.00 Respiratory Function: Airway patent, Regular respirations Cardiovascular Function: Regular pulse Mental Status: Alert/oriented Pain Level Intensity: 0 Hydration: Taking po fluids Complications during Recovery None apparent Follow-Up Instructions Instructions Per Surgeon KRISTIN KOAVCS CRNA December 31, 2016 11:01
--- NOTE | 2016-12-31 13:20 | OPNOTEF ---
DATE OF PROCEDURE 12/31/2016 SURGEON Jose Luis Max MD PREOPERATIVE DIAGNOSIS Personal history for microperforation of colon, history for ulcerated lesion involving hepatic flexure. POSTOPERATIVE DIAGNOSIS Personal history for microperforation of colon, history for ulcerated lesion involving hepatic flexure, polyp x 1 within mid ascending and sigmoid diverticulosis. PROCEDURE Colonoscopy with snare polypectomy. ANESTHESIA TIVA BRIEF HISTORY/INDICATIONS Mr. Shafer is a 76-year-old gentleman who perhaps about 6-9 months ago had presented to our facility as a result of a microperforation of his colon. The patient, fortunately, was able to be managed medically. Followup colonoscopy was performed several weeks after his admission from this microperforation. Upon colonoscopy he was found to have an ulcerated lesion just beyond the hepatic flexure that was biopsied. It did not return as malignant in nature but did appear slightly suspicious in nature. As a result of the above indications, it was recommended to the patient that he undergo a followup colonoscopy at this point time to document resolution of this ulcerated lesion. For completeness, please to notes included in the patient's chart. FINDINGS Upon colonoscopy, fortunately, this ulcerated lesion was no longer visible. There was no evidence for angiodysplastic lesions or jacoby malignancies. The patient was found have a few scattered diverticula within the sigmoid colon region. Within the mid ascending colon the patient was found have a sessile polyp on the order of about 7-8 mm in diameter. A snare was placed around the polyp and polyp was transected and suctioned into a colonic trap and submitted for pathologic ventilation. Bowel prep involving the ascending colon was adequate. There was still, however, a moderate amount of residual stool within the rectum and descending colon which did limit visualization. Overall adequate visualization, however, was able to be accomplished. DESCRIPTION OF PROCEDURE After informed consent was obtained, the patient was brought to the endoscopy suite and placed on the table in left lateral decubitus position. The patient subsequently underwent total intravenous anesthesia by the nurse package pick up per my request. Formal time-out was then completed. Next, a digital examination was performed. Normal sphincter tone. No rectal mass was appreciated. An Olympus colonoscope was inserted in the anus and advanced with the lumen of the colon under direct visualization at all times till the cecum was ascertained. Triangulation of taenia coli and ileocecal valve were identified. Scope was slowly withdrawn. Within the mid ascending colon the patient was found have a sessile polyp as discussed above. A snare was placed around the polyp and the polyp was transected and suctioned into a colonic trap. The scope was then continued be withdrawn. Scope was slowly withdrawn and re-advanced and slowly withdrawn multiple times throughout the ascending colon and specifically the hepatic flexure region. I did not see any evidence for residual ulcerated lesion as discussed previously at this location. Once this area had been carefully inspected multiple times, scope was then continued be slowly withdrawn, again maintaining visualization of the lumen at times. There were a few scattered diverticula within the sigmoid colon region. There was no evidence for angiodysplastic lesions or jacoby malignancies. Once the scope was withdrawn back to rectal vault, a J-maneuver was performed. No worrisome perianal pathology was noted. Scope was allowed to straighten and withdrawn through the anal verge. The patient tolerated the procedure without difficulty and was sent back to the preop area in stable condition. Will await the biopsy results from today's single polypectomy and proceed accordingly with further recommendations thereafter. ZEUS
== END 2016-12-31 11:07 | disposition home or self-care (01) ==
LOC: SCU 08:16
PROVIDERS: ATTEND Surgery
DX: K63.5 Polyp of colon (principal); K57.30 Diverticulosis of large intestine without perforation or abscess without bleeding; K63.1 Perforation of intestine (nontraumatic); I10 Essential (primary) hypertension; I25.10 Atherosclerotic heart disease of native coronary artery without angina pectoris; E78.00 Pure hypercholesterolemia, unspecified; F10.20 Alcohol dependence, uncomplicated; Z79.01 Long term (current) use of anticoagulants; Z79.899 Other long term (current) drug therapy
CPT/HCPCS: 45385; J7120; 88305